=== PATIENT | female | born 1995 | race Caucasian/White ===

== ENCOUNTER 2018-12-08 21:00 | Emergency (ER) | payer SELFPAY ==
[~2018-12-08] VITALS: Ht 149.9 cm; Wt 46.0 kg
[2018-12-08 22:08] LABS: URINE BILIRUBIN - DIPSTICK NEGATIVE (NEGATIVE); URINE BLOOD DIPSTICK NEGATIVE (NEGATIVE); URINE COLOR YELLOW; URINE GLUCOSE - DIPSTICK NEGATIVE (NEGATIVE); URINE KETONE TRACE mg/dL (NEGATIVE); URINE LEUK ESTERASE NEGATIVE (NEGATIVE); URINE NITRITE - DIPSTICK NEGATIVE (Negative); URINE PH 5.5 (4.5-8.0); URINE PROTEIN - DIPSTICK NEGATIVE (NEG-TRACE); URINE SPECIFIC GRAVITY >=1.030; URINE UROBILINOGEN - DIPSTICK 0.2 E.U./dL (0.2)
[2018-12-08 22:48] VITALS: BP 116/80
== END 2018-12-08 22:48 | disposition home or self-care (01) | DRG 761 ==
LOC: ED 21:00
PROVIDERS: Emergency Medicine
DX: N91.2 Amenorrhea, unspecified (principal)